=== PATIENT | female | born 1995 | race American Indian/Alaskan Native ===

== ENCOUNTER 2018-05-04 14:57 | Emergency (ER) | payer SELFPAY ==
[2018-05-04 16:26] LABS: HCG Qualitative,Urine Negative (Negative)
[2018-05-04 16:28] LABS: Bacteria,Urine 2+ /HPF (Negative); Bilirubin,Urine NEG (Negative); Blood,Urine MOD (Negative); Mucus,Urine 3+ /HPF; Protein,Urine <15 mg/dL mg/dL (Negative); Urobilinogen,Urine < 2.0 mg/dL (<2.0)
[2018-05-04 16:38] LABS: Color,Urine Yellow (Yellow)
[2018-05-04] MEDS ORDERED: ZOFRAN IV ONE (18:06)
[2018-05-04] MEDS ORDERED: NORCO 5/325 PO ONE (18:06)
[2018-05-04] MEDS ORDERED: NACL 0.9% 1000 ML 1,000 ML IV ONE (18:06)
--- NOTE | 2018-05-04 18:06 | Emergency Department Report ---
ED Abdominal Pain HPI - General Chief Complaint: Nausea/Vomiting/Diarrhea Stated Complaint: NAUSEA/VOMITING Time Seen by Provider: 05/04/18 17:46 Source: patient, family Mode of arrival: Ambulatory Limitations: No Limitations - History of Present Illness Initial Comments: This is a 22-year-old female here reported that she was having nausea and vomited since yesterday. She denies any abdominal pain per report she is having flank pain. She reports chills but does know she has a fever. Flank pain is 5 out of 10 and feels colicky and crampy. No medication taken for pain. She said the last time she had a kidney infection and so she fell. Patient said the last time she vomited was in the triage area. Denies any urinary burning, frequency or urgency. Denies any vaginal bleeding or discharge. No medication taken prior to coming to the emergency room. No exacerbater alleviating factors. MD Complaint: flank pain, other (nausea and vomiting) Onset/Timin -: days(s) Location: R flank Radiation: none Migration to: no migration Severity: moderate Severity scale (0 -10): 5 Quality: cramping, sharp, other (colicky) Consistency: intermittent, colicky Improves With: nothing Worsens With: nothing Context: other (kidney infection) Associated Symptoms: nausea, vomiting, chills. denies: diarrhea, fever, constipation, dysuria, hematemesis, hematochezia, melena, hematuria, anorexia, syncope Treatments Prior to Arrival: other (none) - Related Data LMP (females 10-50): 3 weeks Previous Rx's Medication Instructions Recorded Last Taken Type Ciprofloxacin HCl [Ciprofloxacin 500 mg PO Q12H 10 Days #20 tab 05/04/18 Unknown Rx TAB] Ondansetron [Zofran Odt] 4 mg PO Q6H PRN #20 tab.rapdis 05/04/18 Unknown Rx Allergies Allergy/AdvReac Type Severity Reaction Status Date / Time Penicillins Allergy Unknown Verified 05/04/18 15:11 ED Review of Systems ROS: Stated complaint: NAUSEA/VOMITING Other details as noted in HPI Constitutional: denies: chills, fever Eyes: vision change. denies: eye discharge ENT: denies: ear pain, throat pain, congestion Respiratory: denies: cough, shortness of breath, SOB with exertion, SOB at rest , stridor, wheezing Cardiovascular: denies: chest pain, palpitations, edema, syncope, paroxysmal nocturnal dyspnea Gastrointestinal: nausea. denies: abdominal pain, diarrhea, constipation, hematemesis, melena, hematochezia Genitourinary: denies: urgency, dysuria, frequency, hematuria, discharge Musculoskeletal: back pain (right flank pain). denies: joint swelling, arthralgia, myalgia Skin: denies: rash, lesions Neurological: denies: headache, weakness, paresthesias ED Past Medical Hx - Past Medical History Previous Medical History?: Yes Hx Headaches / Migraines: Yes - Surgical History Past Surgical History?: Yes Additional Surgical History: VAGINAL DELIVERY - Family History Family history: hypertension - Social History Smoking Status: Current Every Day Smoker Substance Use Type: None - Medications Home Medications: Home Medications Medication Instructions Recorded Confirmed Last Taken Type Ciprofloxacin HCl [Ciprofloxacin 500 mg PO Q12H 10 Days #20 tab 05/04/18 Unknown Rx TAB] Ondansetron [Zofran Odt] 4 mg PO Q6H PRN #20 tab.rapdis 05/04/18 Unknown Rx ED Physical Exam - General Limitations: No Limitations General appearance: alert, in no apparent distress - Head Head exam: Present: atraumatic, normocephalic, normal inspection, other - Eye Eye exam: Present: normal appearance, PERRL, EOMI Pupils: Present: normal accommodation - ENT ENT exam: Present: normal exam, normal orophraynx, mucous membranes moist - Neck Neck exam: Present: normal inspection, full ROM. Absent: tenderness, lymphadenopathy - Respiratory Respiratory exam: Present: normal lung sounds bilaterally. Absent: respiratory distress, chest wall tenderness - Cardiovascular Cardiovascular Exam: Present: regular rate, normal rhythm, normal heart sounds. Absent: systolic murmur, diastolic murmur - GI/Abdominal GI/Abdominal exam: Present: soft, normal bowel sounds. Absent: distended, tenderness, rebound, rigid, organomegaly, mass, hernia - Extremities Exam Extremities exam: Present: normal inspection, full ROM, normal capillary refill , other (No cce. + 2 pulses in all extremities, no neurovascular compromise). Absent: tenderness, pedal edema, joint swelling, calf tenderness - Back Exam Back exam: Present: normal inspection, full ROM, CVA tenderness (R), other ( ambulates without any difficulties). Absent: tenderness, CVA tenderness (L), muscle spasm, paraspinal tenderness, vertebral tenderness, rash noted - Neurological Exam Neurological exam: Present: alert, oriented X3, normal gait, reflexes normal. Absent: motor sensory deficit - Psychiatric Psychiatric exam: Present: normal affect, normal mood - Skin Skin exam: Present: warm, dry, intact, normal color. Absent: rash ED Course Vital Signs 05/04/18 05/04/18 05/04/18 15:08 18:33 20:20 Temperature 99.1 F 98.2 F Pulse Rate 75 66 Respiratory 18 16 16 Rate Blood Pressure 133/74 Blood Pressure 126/89 [Left] O2 Sat by Pulse 99 99 Oximetry - Reevaluation(s) Reevaluation #1: 05/04/18 19:09 Patient received Frederick 5/325 2 tablets by mouth in emergency room to manage right flank pain which relieved her pain. She received 1 L of normal saline and 8 mg of Zofran IV to relieve her nausea and vomiting and she has not had any nausea or vomiting since. Patient received Levaquin 750 mg by mouth for kidney infection treatment. Patient is stable she is in no acute distress. Reevaluation #2: 05/04/18 20:10 Patient voiced that she is feeling better and she is ready to go. Her pain and nausea is controlled. She is able to tolerate by mouth liquids and emergency room. ED Medical Decision Making - Lab Data Lab Results 05/04/18 Range/Units 15:57 Urine Color Yellow (Yellow) Urine Turbidity Slightly-cloudy (Clear) Urine pH 5.0 (5.0-7.0) Ur Specific [place] 1.025 (1.003-1.030) Urine Protein <15 mg/dl (Negative) mg/dL Urine Glucose (UA) Neg (Negative) mg/dL Urine Ketones Neg (Negative) mg/dL Urine Blood Mod (Negative) Urine Nitrite Pos (Negative) Ur Reducing Substances Not Reportable Urine Bilirubin Neg (Negative) Urine Ictotest Not Reportable Urine Urobilinogen < 2.0 (<2.0) mg/dL Ur Leukocyte Esterase Neg (Negative) Urine WBC (Auto) 4.0 (0.0-6.0) /HPF Urine RBC (Auto) 3.0 (0.0-6.0) /HPF U Epithel Cells (Auto) 1.0 (0-13.0) /HPF Urine Bacteria (Auto) 2+ (Negative) /HPF Urine Mucus 3+ /HPF Urine HCG, Qual Negative (Negative) Urine culture sent - Medical Decision Making This is a 22-year-old female here report that she is having right flank pain with nausea and vomiting and she feels like she has a kidney infection. She said this has been going on since yesterday and she feels like she has chills but did not take her temperature. She is here to be evaluated. Patient was seen and evaluated by myself. Patient's physical exam is normal except she has right CVA tenderness. Abdomen is nontender to palpate in all quadrants with normal bowel sounds. Mouth is moist without any pharyngeal exudate or erythema. No hernia bruit or mass felt to abdomen. Patient had urinalysis done which shows a urine was cloudy, moderate amount of blood and positive nitrites. She looks that Estrace negative, white cells is negative and 1+ bacteria with 3+ mucus. Patient also has negative test. I discussed the patient given low-grade fever of 99.1, nausea and vomiting and positive right CVA tenderness other kidney with urinary findings she has right pyelonephritis which is a infection in her kidney on the right side. Patient nausea and vomiting was treated with 1 L of normal saline and Zofran 8 mg ODT and she has no further nausea or vomiting. She was given Frederick 5/3-52 tablets by mouth for right flank pain which has resolved. Patient was started on Levaquin 750 mg by mouth to start kidney infection and she was given first dose in the emergency room and we will send her home with prescription for ciprofloxacin. I discussed diagnosis, urinary findings and results with patient and she voiced understanding. Urine culture sent. Patient discharged home in stable condition, vital signs are stable she is afebrile and she is tolerating oral liquids well. Prescription given for Zofran and ciprofloxacin. Critical care attestation.: If time is entered above; I have spent that time in minutes in the direct care of this critically ill patient, excluding procedure time. ED Disposition Clinical Impression: Acute pyelonephritis Nausea & vomiting Qualifiers: Vomiting type: unspecified Vomiting Intractability: non-intractable Qualified Code(s): R11.2 - Nausea with vomiting, unspecified Disposition: DC-01 TO HOME OR SELFCARE Is pt being admited?: No Does the pt Need Aspirin: No Condition: Stable Instructions: Acute Pyelonephritis (ED), Acute Nausea and Vomiting (ED), Flank Pain (ED) Additional Instructions: Please follow-up with your primary care in 2 days and if he do not have a primary care physician follow-up at [facility] Take Zofran for nausea and vomiting and Takes ciprofloxacin for kidney infection Increase your water intake to include Gatorade at least 2-3 L of water daily. If his symptoms worsen, return to the emergency room [facility]. Prescriptions: Ciprofloxacin HCl [Ciprofloxacin TAB] 500 mg PO Q12H 10 Days #20 tab Ondansetron [Zofran Odt] 4 mg PO Q6H PRN #20 tab.rapdis PRN Reason: Nausea And Vomiting Referrals: PRIMARY CARE, [Primary Care Provider] - 05/06/18 [facility] [Outside] - 05/06/18 Forms: Work/School Release Form(ED)
[2018-05-04] MEDS ORDERED: LEVAQUIN PO ONE (18:14)
[2018-05-04 20:21] VITALS: BP 126/89
== END 2018-05-04 20:25 | disposition home or self-care (01) ==
LOC: ED 14:57
DX: N10 Acute pyelonephritis (principal); G43.909 Migraine, unspecified, not intractable, without status migrainosus; F17.200 Nicotine dependence, unspecified, uncomplicated; Z88.0 Allergy status to penicillin
CPT/HCPCS: 81001; 81025; 87086; 87186; 96361; 96374; 99283; J2405; J7030

== ENCOUNTER 2021-12-21 08:38 | Emergency (ER) | payer SELFPAY ==
[2021-12-21 09:00] VITALS: BP 139/99
[2021-12-21] MEDS ORDERED: IBUPROFEN 800 MG TAB PO ONE (10:15)
--- NOTE | 2021-12-21 10:16 | Emergency Department Report ---
Upper Extremity - HPI Chief Complaint: Extremity Injury, Upper Stated Complaint: RT WRIST INJURY Time Seen by Provider: 12/21/21 09:58 Upper Extremity: Right Wrist Occurred When: 2 Days Mechanism: Other Severity: mild Symptoms: Yes Pain with Movement, Yes Swelling, No Deformity, No Limited Range of Movement, No Numbness, No Weakness, No Laceration or Abrasion Other History: Patient is a 26-year-old obese female that comes to the ER today complaining of right wrist pain. She did not go to work because her wrist hurt. She states that 2 days ago when she went to work her wrist was fine but when she came home she noticed some swelling. The next morning she had a sensation of not being able to extend or flex her wrist, because the wrist was swollen. On exam she has minimal swelling appreciable. She has radial and ulnar pulses that are intact. Rapid cap refill. Radial and ulnar nerves are intact. Hand is warm. Patient denies any fall or other trauma. She does report that she lifts a lot of boxes at work. I suspect this is a repetitive use injury. ED Review of Systems ROS: Stated complaint: RT WRIST INJURY Other details as noted in HPI Comment: All other systems reviewed and negative ED Past Medical Hx - Past Medical History Previous Medical History?: Yes Hx Headaches / Migraines: Yes Hx Asthma: Yes - Surgical History Past Surgical History?: Yes Additional Surgical History: VAGINAL DELIVERY - Family History Family history: no significant - Social History Smoking Status: Current Every Day Smoker Substance Use Type: None, Marijuana - Medications Home Medications: Home Medications Medication Instructions Recorded Confirmed Last Taken Type Ciprofloxacin HCl [Ciprofloxacin 500 mg PO Q12H 10 Days #20 tab 05/04/18 Unknown Rx TAB] Ondansetron [Zofran Odt] 4 mg PO Q6H PRN #20 tab.rapdis 05/04/18 Unknown Rx Acetaminophen/Codeine [Tylenol 1 tab PO Q6H PRN #12 tab 08/20/18 Unknown Rx /Codeine # 3 tab] Sulfamethoxazole/Trimethoprim 1 each PO BID #14 tablet 08/20/18 Unknown Rx [Bactrim DS TAB] ALBUTEROL Inhaler(NF) [VENTOLIN 2 puff IH Q4-6H PRN #1 inha 01/14/19 Unknown Rx Inhaler(NF)] Azithromycin [Zithromax Z-MICHAEL] 250 mg PO DAILY #6 tablet 01/14/19 Unknown Rx Fluticasone [Flonase] 1 spray NS QDAY #1 bottle 01/14/19 Unknown Rx Loratadine (Nf) [Claritin] 10 mg PO DAILY #30 tablet 01/14/19 Unknown Rx Prednisone [predniSONE 10 mg 10 mg PO .TAPER #1 tab.ds.pk 01/14/19 Unknown Rx (6-Day Pack, 21 Tabs)] Ibuprofen [Motrin] 800 mg PO Q8HR PRN #30 tablet 12/21/21 Unknown Rx Upper Extremity Exam - Exam General: Vital signs noted. No distress. Alert and acting appropriately. Head and Torso: No HEENT Abnormality, No Neck Tenderness, No Chest/Lungs Abnormality, No Abdominal Tenderness, No Back Tenderness Shoulder Exam: Yes Normal Range of Motion in Shoulder, No Shoulder Tenderness, No Clavicle Tenderness, No Shoulder Deformity, No AC Joint Tenderness Arm Exam: No Arm/Humerus Tenderness, No Arm Deformity Elbow: No Elbow Tenderness, No Normal Range of Motion in Elbow, No Elbow Deformity Forearm: No Forearm Tenderness, No Forearm Deformity, No Pain with Pronation, No Pain with Supination Wrist: Yes Normal ROM in Wrist, No Wrist Tenderness, No Wrist Deformity, No Snuffbox Tenderness, No Pain with Axial Thumb Compression Hand: Yes Normal ROM in Digit(s), No Hand Tenderness, No Hand Deformity, No Digit Tenderness, No Digit(s) Deformity, No Tendon Dysfunction CMS Exam: No Broken Skin, No Normal Distal Pulses, No Normal Capillary Refill, No Normal Distal Sensation ED Course Vital Signs 12/21/21 09:00 Temperature 98.7 F Pulse Rate 68 Respiratory 15 Rate Blood Pressure 139/99 [Right] O2 Sat by Pulse 95 Oximetry ED Medical Decision Making - Radiology Data Radiology results: report reviewed, image reviewed [facility] - Medical Decision Making X-ray normal Vital Signs 12/21/21 09:00 Temperature 98.7 F Pulse Rate 68 Respiratory 15 Rate Blood Pressure 139/99 [Right] O2 Sat by Pulse 95 Oximetry Patient has been placed in an Andriy for comfort. She has been given Motrin for pain. Patient being discharged home with discharge plan of care including orthopedic/PCP follow-up. She will be sent home with Motrin as an anti- inflammatory. I have placed her in an Andriy for comfort. And told her not to use it for more than 48 hours for it can cause tissues injuries. On discharge she is neurovascularly intact. Patient was requesting a note to be taken out of work for more than today. I told her that we cannot do that that she would have to see her primary care orthopedic doctor to have extended periods of time off work. - Differential Diagnosis Fracture, carpal tunnel Critical care attestation.: If time is entered above; I have spent that time in minutes in the direct care of this critically ill patient, excluding procedure time. ED Disposition Clinical Impression: Wrist pain Qualifiers: Laterality: right Qualified Code(s): M25.531 - Pain in right wrist Disposition: 01 HOME / SELF CARE / HOMELESS Is pt being admited?: No Does the pt Need Aspirin: No Condition: Stable Instructions: Musculoskeletal Pain Additional Instructions: Alternating ice and heat may help for comfort. [id number] Motrin and Tylenol for pain. Follow-up with primary care or orthopedic if pain persist Andriy wrap can be used for comfort but just for a couple days. Otherwise she can get a secondary injury. Diet and activity as tolerated Prescriptions: Ibuprofen [Motrin] 800 mg PO Q8HR PRN #30 tablet PRN Reason: Pain, Moderate (4-6) Referrals: PRIMARY MD STACEY [Primary Care Provider] - 3-5 Days ORIANA MENCHACA MD [Staff Physician] - 3-5 Days DEBRA FLOYD MD [Staff Physician] - 3-5 Days Time of Disposition: 10:16
--- NOTE | 2021-12-21 10:30 | XRay Report ---
RIGHT WRIST 2 VIEW(S) INDICATION / CLINICAL INFORMATION: wrist pain COMPARISON: None available. FINDINGS: BONES / JOINT(S): No acute fracture or subluxation. No significant arthritis. SOFT TISSUES: No significant abnormality. ADDITIONAL FINDINGS: None. Impression: No fracture or dislocation is seen. Joint spaces are maintained. Signer Name: Shahzad Saucedo MD Signed: 12/21/2021 10:25 AM Workstation Name: [id number]
== END 2021-12-21 10:47 | disposition home or self-care (01) ==
LOC: ED 08:38
DX: M25.531 Pain in right wrist (principal); G43.909 Migraine, unspecified, not intractable, without status migrainosus; J45.909 Unspecified asthma, uncomplicated; F17.200 Nicotine dependence, unspecified, uncomplicated; F12.90 Cannabis use, unspecified, uncomplicated; Z88.0 Allergy status to penicillin
CPT/HCPCS: 99283